=== PATIENT | female | born 1965 | race Caucasian/White ===

== ENCOUNTER → 2018-12-23 | Outpatient (CLI) | payer BC ==
--- NOTE | 2018-12-23 12:27 | XR ---
EXAMINATION TYPE: XR knee complete RT DATE OF EXAM: 12/23/2018 CLINICAL HISTORY: Right knee pain with no known injury TECHNIQUE: Three views of the right knee are obtained. COMPARISON: None. FINDINGS: There is no acute fracture/dislocation evident in right knee. There is medial compartment joint space narrowing and tibial plateau sclerosis with small tricompartmental osteophytes. Fabella i s also incidentally seen. Sclerotic lesion of the medial femoral condyle may relate to a bone island. No sizable suprapatellar joint effusion. The overlying soft tissue appears unremarkable. IMPRESSION: No acute fracture or dislocation in right knee. Tricompartmental arthropathy is mild to m oderate most pronounced in the medial compartment. Nonspecific sclerotic focus of the medial femoral condyle may relate to bone island.
== END | disposition home or self-care (01) ==
LOC: RADXRMAIN 11:42
PROVIDERS: ATTEND Family Medicine
DX: M17.11 Unilateral primary osteoarthritis, right knee (principal); R00.2 Palpitations; M25.562 Pain in left knee; R93.7 Abnormal findings on diagnostic imaging of other parts of musculoskeletal system

== ENCOUNTER → 2020-12-09 | Outpatient (CLI) | payer BC ==
--- NOTE | 2020-12-09 13:05 | US ---
EXAMINATION TYPE: US abdomen complete DATE OF EXAM: 12/09/2020 COMPARISON: NONE CLINICAL HISTORY: R94.5 ABN LIVER FUNCTIONS. Abnormal LFTs, pt states no known liver issues EXAM MEASUREMENTS: Liver Length: 16.9 cm Gallbladder Wall: 0.2 cm CBD: 0.4 cm Spleen: 10.3 cm Right Kidney: 11.6 x 4.3 x 5.2 cm Left Kidney: 12.0 x 5.5 x 5.4 cm Pancreas: Tail of the pancreas obscured by overlying bowel gas Liver: Mild diffuse fatty infiltration of liver with probable focal focal areas of fatty sparing at t he yeni hepatis and gallbladder fossa. Gallbladder: wnl Evidence for sonographic Carrasquillo's sign: No CBD: wnl Spleen: wnl Right Kidney: wnl, lower pole not well visualized due to overlying bowel gas. Left Kidney: wnl Upper IVC: wnl Abd Aorta: wnl No hydronephrosis or shadowing renal calculi. IMPRESSION: 1. The tail of the pancreas is obscured by overlying bowel gas. 2. Mild diffuse fatty infiltration of the liver with probable focal areas of fatty sparing at the por ta hepatis and gallbladder fossa. A CT abdomen using liver protocol may be helpful for further evalua tion.
== END | disposition home or self-care (01) ==
LOC: RADUSWWP 07:29
PROVIDERS: ATTEND Family Medicine
DX: K76.0 Fatty (change of) liver, not elsewhere classified (principal)
CPT/HCPCS: 76700

== ENCOUNTER → 2022-11-29 | Outpatient (CLI) | payer BC ==
--- NOTE | 2022-11-29 14:18 | MR ---
EXAMINATION TYPE: MR knee LT wo con DATE OF EXAM: 11/29/2022 COMPARISON: Outside right knee x-ray November 20, 2022 HISTORY: Lt knee pain, swells and locks TECHNIQUE: Multiplanar, multisequence images of the knee is performed without IV contrast. FINDINGS: MEDIAL MENISCUS: Truncated appearance posterior horn with abnormal signal consistent with full thickn ess tearing. LATERAL MENISCUS: Discoid meniscus is present. No abnormal signal to suggest tear CRUCIATE LIGAMENTS: The posterior cruciate ligament is intact and unremarkable. Some increased signal and fanning of fibers in the anterior cruciate ligament COLLATERAL LIGAMENTS: The medial collateral ligament and lateral collateral ligament complex are inta ct and unremarkable. EXTENSOR MECHANISM: Visualized quadriceps and patellar tendons are intact. EFFUSION: Moderate-size suprapatellar joint effusion. POPLITEAL CYST: No popliteal/barroso cyst. TRICOMPARTMENT SPACES: Moderate tricompartment joint space loss and spurring. CARTILAGE: Cartilaginous loss medial tibiofemoral compartment. BONE MARROW SIGNAL: No focal abnormal marrow signal is appreciated. OTHER: No additional significant abnormality is appreciated. IMPRESSION: 1. Full-thickness tear posterior horn of medial meniscus. 2. Moderate tricompartment degenerative changes as detailed above. 3. Moderate-sized suprapatellar joint effusion. 4. 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 No full thickness tear.
== END | disposition home or self-care (01) ==
LOC: RADMRIMAIN 13:04
PROVIDERS: ATTEND Orthopaedic Surgery
DX: S83.242A Other tear of medial meniscus, current injury, left knee, initial encounter (principal); M17.12 Unilateral primary osteoarthritis, left knee; M25.462 Effusion, left knee; X58.XXXA Exposure to other specified factors, initial encounter

== ENCOUNTER → 2023-01-03 | Outpatient (CLI) | payer BC ==
[2023-01-03 21:39] LABS: Basophils # (A) 0.03 X 10*3/uL (0.00-0.10); Basophils % (A) 0.5 %; Eosinophils # (A) 0.07 X 10*3/uL (0.04-0.35); Eosinophils % (A) 1.3 %; HCT 40.6 % (37.2-46.3); HGB 13.7 d/dL (12.0-15.0); Lymphocytes # (A) 1.36 X 10*3/uL (0.90-5.00); Lymphocytes % (A) 24.8 %; MCH 30.2 pg (27.0-32.0); MCHC 33.7 d/dL (32.0-37.0); MCV 89.4 FL (80.0-97.0); Mean Platelet Volume 11.6 FL (9.5-12.2); Monocytes # (A) 0.34 X 10*3/uL (0.20-1.00); Monocytes % (A) 6.2 %; NRBC Per 100 WBC 0 X 10*3/uL (0.00-0.01); Neutrophils # (A) 3.67 X 10*3/uL (1.80-7.70); Neutrophils % (A) 66.8 %; Platelet Count 271 X 10*3/uL (140-440); RBC 4.54 X 10*6/uL (4.10-5.20); RDW 12.5 % (11.5-14.5); WBC 5.49 X 10*3/uL (4.50-10.00)
== END | disposition home or self-care (01) ==
LOC: LABWHC1 15:02
PROVIDERS: ATTEND Orthopaedic Surgery
DX: Z01.818 Encounter for other preprocedural examination (principal); M23.92 Unspecified internal derangement of left knee; R94.31 Abnormal electrocardiogram [ECG] [EKG]
CPT/HCPCS: 85025; 93005

== ENCOUNTER 2023-01-17 11:36 | Day surgery (SDC) | payer BC ==
[2023-01-15 08:46] VITALS: BMI 31.8
--- NOTE | 2023-01-16 13:56 | HP ---
HISTORY AND PHYSICAL DATE OF SCHEDULED SURGERY: 01/17/2023. HISTORY OF PRESENT ILLNESS: Deisy Galvan is a 57-year-old patient seen with progressive left knee pain. We discussed options for treatment. She elected to proceed with left knee arthroscopy. Consent was obtained. PAST MEDICAL HISTORY: Hypothyroidism. PAST SURGICAL HISTORY: Noncontributory. DAILY MEDICATIONS: 1. Levothyroxine. 2. Motrin. ALLERGIES: None. SOCIAL HISTORY: She denies tobacco use. PHYSICAL EVALUATION OF LEFT KNEE: Range of motion is -3/4 to 115 degrees. Tenderness along the medial and lateral joint line. Positive medial Jose Alberto's. Positive lateral Jose Alberto's. Ligaments stable. Hip rotation without pain. Distal neurovascular exam intact. RADIOGRAPHS: Right knee radiographs revealed moderate medial compartment osteoarthritis. Mild patellofemoral compartment osteoarthritis. MRI left knee revealed medial meniscal tear and effusion. IMPRESSION: Internal derangement of left knee with medial meniscal tear. PLAN: Left knee arthroscopy with partial medial meniscectomy and debridement. MMODL / IJN: [id number] /
[~2023-01-17 11:36] MED LIST: DEXAMETHASONE SOD PHOSPHATE 4 MG/ML 1 ML VIAL IV ONE; LIDOCAINE 1% (10MG/ML) FOR IV START INTRADERMA PRN; MIDAZOLAM 2 MG/2 ML VIAL IV PRN; ONDANSETRON 4 MG/2 ML VIAL IVP ONE
[2023-01-17] MEDS: LACTATED RINGERS 1,000 ML IV SCH ×2 (11:56→12:15)
[2023-01-17] MEDS ORDERED: BUPIVACAINE (PF) 0.25% 30 ML VIAL SQ ONE ×2 (13:30→14:18)
[2023-01-17] MEDS ORDERED: fentaNYL (PF) 50 MCG/ML 2 ML AMP ONE (13:40)
[2023-01-17] MEDS ORDERED: LIDOCAINE 2% INJ 20 MG/ML (2 ML VIAL) ONE (13:40)
[2023-01-17] MEDS ORDERED: PROPOFOL 10 MG/ML 20 ML VIAL IV ONE (13:40)
[2023-01-17] MEDS ORDERED: MIDAZOLAM 2 MG/2 ML VIAL ONE (13:40)
[2023-01-17 14:35] VITALS: TEMP 96.8
[2023-01-17] MEDS: HYDROmorphone 0.5 MG/0.5 ML SYRINGE IVP PRN ×2 (14:36→14:56)
--- NOTE | 2023-01-17 14:36 | P.OP ---
Date of Procedure: 01/17/23 Preoperative Diagnosis: Internal derangement right knee Postoperative Diagnosis: 1. Tear medial lateral meniscus right knee 2. Grade 4 chondromalacia medial femoral condyle right knee 3. Grade 4 chondromalacia femoral sulcus right knee 4. Reactive synovitis medial, lateral and suprapatellar compartments right knee 5. Grade 2/3 chondromalacia lateral femoral condyle right knee 6. Grade 4 chondromalacia medial tibial plateau right knee Procedure(s) Performed: 1. Arthroscopic partial medial and lateral meniscectomy right knee 2. Arthroscopic microfracture medial femoral condyle right knee 3. Arthroscopic microfracture femoral sulcus right knee 4. Arthroscopic partial synovectomy medial, lateral and suprapatellar compartments right knee 5. Arthroscopic chondroplasty medial femoral condyle right knee 6. Arthroscopic chondroplasty lateral femoral condyle right knee Anesthesia: KITTY, local Surgeon: Hemanth Rodriguez Estimated Blood Loss (ml): 7 Pathology: none sent Condition: stable Disposition: PACU Indications for Procedure: 57-year-old patient seen with progressive right knee pain. After having treatment options discussed, she elected to proceed with arthroscopy. Operative Findings: See description of procedure Description of Procedure: Patient was taken to the operative suite. Patient underwent a general anesthetic by the department of anesthesia. Patient was given preoperative antibiotics. The right lower extremity was placed in a well-padded arthroscopic leg muñoz. The right leg was prepped and draped in the normal sterile orthopedic fashion. A lateral parapatellar and suprapatellar incision was made. Trochars were inserted. Arthroscopy was initiated. Suprapatellar pouch revealed diffuse thick reactive synovitis. The patellofemoral joint appeared articulate congruently. There as grade 2 chondral malacia patella and grade 3/4 chondral moist changes of the femoral sulcus to include an area of exposed bone. The scope was guided into the medial gutter. No loose bodies or plica were identified. The scope was then guided into the medial compartment. A medial parapatellar incision was made. Trocar inserted followed by probe. There was a complex tear involving the midbody and posterior horn medial meniscus. There were grade 3/4, changes of the femoral condyle and 3/4, changes of the tibial plateau. There was thick reactive some-itis anteriorly. I performed a partial medial meniscectomy getting down to stable meniscal tissue. I performed a chondroplasty of the medial femoral condyle getting down to stable osteochondral tissue. I performed a partial synovectomy decompressing reactive synovitis. I noted areas exposed bone involving the medial femoral condyle as well as a exposed bone along the medial tibial plateau area. I introduced a microfracture awl performed a microfracture to medial femoral condyle area of exposed bone penetrating the bone with resultant bleeding at the microfracture site. The residual meniscus was probed and was found to be stable. The residual osteochondral surface appeared stable. There was good decompression of the synovitis. Scope and probe were then guided into the intercondylar notch. Cruciates were identified, probed and found to be stable. The scope and probe were then guided into lateral compartment.. There were some radial tears along the mid body and posterior horn lateral meniscus. There was an area of grade 2/3 chondromalacia lateral femoral condyle with some osteochondral flap tears. There was thick reactive some-itis anteriorly. I performed a partial lateral meniscectomy getting down to stable meniscal tissue. I performed a chondroplasty lateral femoral condyle getting down to stable osteochondral tissue. I performed a partial synovectomy decompressing the reactive synovitis. The residual meniscus was stable. The residual osteochondral surface was stable. There was good decompression of the synovitis. The scope was in guided back into the suprapatellar compartment. I introduced a motorized shaver into the suprapatellar compartment. I performed a partial synovectomy decompressing the reactive synovitis. I now introduced a microfracture awl and performed a microfracture to the area of exposed bone femoral sulcus penetrating the bone with resultant bleeding at the microfracture site. The residual osteochondral surface was probed and was found to be stable. There was good decompression of the synovitis. I took one more look around the entire knee, no residual debris. Instruments were now removed from the joint. The joint was infiltrated with .25% Marcaine. The portal sites were proximal nylon suture. Sterile dressings were applied. The patient was placed into a BAILEE hose. No tourniquet was utilized. The patient was awakened, transferred to a bed and taken to recovery stable satisfactory condition.
[2023-01-17 14:53] VITALS: RESP 16
[2023-01-17 15:24] VITALS: PULSE 83
[2023-01-17 15:50] VITALS: BP 159/87
== END 2023-01-17 16:01 | disposition home or self-care (01) ==
LOC: OR 11:36
PROVIDERS: ATTEND Orthopaedic Surgery
DX: S83.231A Complex tear of medial meniscus, current injury, right knee, initial encounter (principal); S83.281A Other tear of lateral meniscus, current injury, right knee, initial encounter; M94.261 Chondromalacia, right knee; M65.861 Other synovitis and tenosynovitis, right lower leg; M17.11 Unilateral primary osteoarthritis, right knee; M25.461 Effusion, right knee; E03.9 Hypothyroidism, unspecified; Z79.890 Hormone replacement therapy; Z79.1 Long term (current) use of non-steroidal anti-inflammatories (NSAID)
CPT/HCPCS: 29879; 29880; J2250; J1100; J0690; J2405; J3010; J2704; J1170; J2001

== ENCOUNTER → 2023-10-10 | Outpatient (CLI) | payer BC ==
[2023-10-11 02:44] LABS: BUN/Creat Ratio 26.38 Ratio (12.00-20.00); Blood Urea Nitrogen 21.1 mg/dL (9.0-27.0); Calcium 9.3 mg/dL (8.7-10.3); Carbon Dioxide 26.6 mmol/L (21.6-31.8); Chloride 105 mmol/L (96-109); Glucose 113 mg/dL (70-110); Potassium 4.4 mmol/L (3.5-5.5); Sodium 143 mmol/L (135-145)
[2023-10-11 03:01] LABS: Basophils # (A) 0.05 X 10*3/uL (0.00-0.10); Basophils % (A) 0.9 %; Eosinophils # (A) 0.07 X 10*3/uL (0.04-0.35); Eosinophils % (A) 1.3 %; HCT 41.3 % (37.2-46.3); Lymphocytes # (A) 1.41 X 10*3/uL (0.90-5.00); Lymphocytes % (A) 26.3 %; MCH 29.3 pg (27.0-32.0); MCHC 31.5 g/dL (32.0-37.0); Mean Platelet Volume 11.6 FL (9.5-12.2); Monocytes # (A) 0.31 X 10*3/uL (0.20-1.00); Monocytes % (A) 5.8 %; NRBC Per 100 WBC 0 X 10*3/uL (0.00-0.01); Neutrophils # (A) 3.52 X 10*3/uL (1.80-7.70); Neutrophils % (A) 65.5 %; Platelet Count 267 X 10*3/uL (140-440); RBC 4.44 X 10*6/uL (4.10-5.20); RDW 13.5 % (11.5-14.5); WBC 5.37 X 10*3/uL (4.50-10.00)
[2023-10-11 03:32] LABS: INR 0.95 sec (0.93-1.11); Prothrombin Time 10.3 sec (9.9-11.9)
== END | disposition home or self-care (01) ==
LOC: LABPAT 11:59
PROVIDERS: ATTEND Orthopaedic Surgery
DX: Z01.812 Encounter for preprocedural laboratory examination (principal); M17.11 Unilateral primary osteoarthritis, right knee; Z22.322 Carrier or suspected carrier of Methicillin resistant Staphylococcus aureus
CPT/HCPCS: 80048; 85025; 85610; 87070; 93005

== ENCOUNTER 2023-10-21 08:05 | Day surgery (SDC) | payer BC ==
[2023-10-14 11:34] VITALS: BMI 33.5
--- NOTE | 2023-10-20 13:33 | HP ---
HISTORY AND PHYSICAL DATE OF SURGERY: 10/21/2023. HISTORY OF PRESENT ILLNESS: Deisy Galvan is a 58-year-old patient, who was seen with symptomatic right knee osteoarthritis. We discussed the options regarding treatment. She elected to proceed with right total knee arthroplasty. Consents obtained. PAST MEDICAL HISTORY: Hypothyroidism. PAST SURGICAL HISTORY: Noncontributory. DAILY MEDICATIONS: 1. Levothyroxine. 2. Motrin. ALLERGIES: None. SOCIAL HISTORY: She denies tobacco use. PHYSICAL EVALUATION OF THE RIGHT KNEE: Her range of motion is negative 2 to 120 degrees. Mild effusion. Tenderness along the medial joint line. Crepitance along the medial patellofemoral compartments with range of motion. Pain with patellofemoral compression. Ligaments are stable. Hip rotation without pain. Distal neurovascular exam is intact. IMAGING STUDIES: Right knee radiographs revealed severe osteoarthritic changes. IMPRESSION: 1. Right knee osteoarthritis. 2. Hypothyroidism. PLAN: Right total knee arthroplasty. MMODL / IJN: [id number] /
[~2023-10-21 08:05] MED LIST changes: -DEXAMETHASONE SOD PHOSPHATE 4 MG/ML 1 ML VIAL IV ONE; +HYDROmorphone 0.5 MG/0.5 ML SYRINGE IVP PRN; -MIDAZOLAM 2 MG/2 ML VIAL IV PRN; -ONDANSETRON 4 MG/2 ML VIAL IVP ONE; +TRANEXAMIC 1,000 MG/100ML-NACL 1,000 MG in SALINE 1 100ML.BAG IVPB PRN
[2023-10-21] MEDS: LACTATED RINGERS 1,000 ML IV SCH ×2 (08:36→13:41)
[2023-10-21] MEDS: ONDANSETRON 4 MG/2 ML VIAL IVP ONE (08:41)
[2023-10-21] MEDS: DEXAMETHASONE SOD PHOSPHATE 4 MG/ML 1 ML VIAL IVP ONE (08:41)
[2023-10-21] MEDS: MELOXICAM 7.5 MG TAB PO PRN (08:45)
[2023-10-21] MEDS: ACETAMINOPHEN TAB 500 MG TAB PO PRN (08:45)
[2023-10-21] MEDS: MIDAZOLAM 2 MG/2 ML VIAL IVP ONE (09:02)
[2023-10-21] MEDS ORDERED: TRANEXAMIC 1,000 MG/100ML-NACL PREMIX BAG ONE (09:52)
[2023-10-21] MEDS ORDERED: ROPIVACAINE 5 MG/ML 30 ML VIAL ONE (09:52)
[2023-10-21] MEDS ORDERED: MIDAZOLAM 2 MG/2 ML VIAL ONE (09:52)
[2023-10-21] MEDS ORDERED: PROPOFOL 10 MG/ML 20 ML VIAL IV ONE (09:52)
[2023-10-21] MEDS ORDERED: fentaNYL (PF) 50 MCG/ML 2 ML AMP ONE (09:52)
[2023-10-21] MEDS ORDERED: DEXAMETHASONE SOD PHOSPHATE 4 MG/ML 1 ML VIAL ONE (09:52)
[2023-10-21] MEDS: TRANEXAMIC 1,000 MG/100ML-NACL 1,000 MG in SALINE 1 100ML.BAG IVPB PRN (09:56)
[2023-10-21] MEDS: ceFAZolin 1,000 MG in SODIUM CHLORIDE 0.9% 1,000 ML IRRIGATION ONE (10:22)
[2023-10-21] MEDS: LACTATED RINGERS 1,000 ML IV ONE (11:24)
[2023-10-21] MEDS ORDERED: ONDANSETRON 4 MG/2 ML VIAL IVP PRN (11:39)
[2023-10-21] MEDS ORDERED: NALOXONE 0.4 MG/ML 1 ML VIAL IV PRN (11:39)
[2023-10-21] MEDS ORDERED: HYDROmorphone 0.5 MG/0.5 ML SYRINGE IVP PRN (11:39)
[2023-10-21] MEDS ORDERED: HYDROcodone/APAP 5-325MG 1 EACH TAB PO PRN (11:39)
--- NOTE | 2023-10-21 11:39 | P.OP ---
Date of Procedure: 10/21/23 Preoperative Diagnosis: Right knee osteoarthritis Postoperative Diagnosis: Right knee osteoarthritis Procedure(s) Performed: Right total knee arthroplasty Implants: 1. DePuy attune size 6 narrow right cruciate retaining cemented femur 2. DePuy attune size 6 fixed-bearing cemented tibial baseplate 3. DePuy attune size 6 fixed-bearing cruciate retaining 12 mm polyethylene tibial insert 4. DePuy attune 38 mm all polyethylene cemented patella Anesthesia: regional (Adductor canal catheter), spinal Surgeon: Hemanht Rodriguez Reports Developer #1: Lalo Trejo Estimated Blood Loss (ml): 40 Pathology: none sent Condition: stable Disposition: PACU Indications for Procedure: 58-year-old patient seen with symptomatic right knee osteoarthritis. After having treatment options discussed, she elected to proceed with total knee art hroplasty. Operative Findings: See description of procedure Description of Procedure: Patient was taken to the operative suite after having an adductor canal catheter placed by the department of anesthesia. Patient underwent a spinal anesthetic by the department of anesthesia. Patient was given preoperative IV intake antibiotics and TXA. A well-padded tourniquet was placed about the right lower extremity. The lower extremity was then prepped and draped in the normal sterile orthopedic fashion. The extremity was elevated, a tourniquet was insufflated to 300. A standard anterior incision was made sharply through skin. Dissection was taken down through the subcutaneous soft tissues down to the extensor mechanism. A medial arthrotomy was performed, patella was everted and knee was flexed. There was advanced osteoarthritis noted. I introduced my distal intramedullary femoral drill. I then introduced the distal femoral cutting jig. Osmin MONSIVAIS secured the cutting jig with 2 pins. I held retractors in position while Osmin MONSIVAIS performed the distal femoral resection through the guide area we now removed her distal femoral cutting guide. We now placed our 4-in-1 femoral cutting block and positioned and it was secured with 2 pins by Osmin MONSIVAIS while I held the block in position. The distal femoral finishing was now completed. A proximal tibial cutting guide was positioned. I held the guide in the appropriate position with both hands well Osmin MONSIVAIS inserted stabilizing pins into the guide. Proximal tibial cut was made. We now placed a trial femoral component into position, along with an appropriate size tibial tray and insert. We now took the knee through range of motion and had full extension good flexion and good overall soft tissue balance noted. The patella was everted and stabilized with 2 towel clips held by Osmin MONSIVAIS while I performed a flush with patellar quad tendon utilizing a fresh sawblade. We templated the patella, appropriate drill holes were made. An appropriate trial patella was positioned, knee was taken through full range of motion with the patella tracking very nicely. The trial patella was removed. Drill holes were made through the femoral component. All trial components were removed after marking off the appropriate rotation of the tibia. Retractors w ere now positioned along the proximal tibia. An appropriate keel punch was made with the appropriate size tibial guide by myself on Osmin MONSIVAIS assisted by holding retractors. At this point appropriate size implants were chosen and opened. The joint was irrigated copiously with pulse lavage mechanical irrigation. The wound was irrigated with pulse lavage mechanical irrigation. We mixed antibiotic methylmethacrylate. We placed the knee into flexion. We placed multiple retractors assisted by Osmin MONSIVAIS to expose the proximal tibia. Once the methyl methacrylate was ready, the tibial component was cemented into place removing any excess methylmethacrylate form by both myself and Osmin MONSIVAIS. The femoral component was cemented into place removing the removing any excess methylmethacrylate performed by both myself and Osmin MONSIVAIS. We then inserted the appropriate size polyethylene tibial insert. We made sure that it was locked into position. We took the knee into full extension, and then back in a flexion making sure we had removed any excess methylmethacrylate. The patellar component was then cemented down and secured with clamp. Excess methylmethacrylate removed. We kept the knee in full extension, patellar clamp in position until methylmethacrylate had hardened. Once it had hardened the patellar clamp was removed. The knee was taken through full range of motion. The patella tracked nicely. There was good soft tissue balancing. The tourniquet was now released. Additional hemostasis was achieved via electrocautery. A second gram of TXA was given. The wound again was irrigated with pulse lavage mechanical irrigation. The extensor mechanism was repaired with Ethibond suture. We checked the repair with range of motion and it was stable. The subcutaneous soft tissues were repaired with Vicryl in layers. The skin was approximated with pernio/Dermabond. Sterile dressings were applied followed by loose web roll and Dustin bandage. The patient was transferred to a bed, and taken to recovery in stable and satisfactory condition. Osmin MONSIVAIS assisted with this complex procedure.
[2023-10-21] MEDS: ROPIVACAINE 1,100 MG, SODIUM CHLORIDE 0.9% 500 ML 330 ML, EMPTY PAIN BALL 1 EACH MISCELLANE PRN (12:46)
--- NOTE | 2023-10-21 13:05 | XR ---
EXAMINATION TYPE: XR knee limited RT DATE OF EXAM: 10/21/2023 CLINICAL HISTORY: Postoperative evaluation Two views of the right knee are submitted. Identified are changes of total knee arthroplasty with femoral and tibial components appearing well seated. Postsurgical soft tissue changes are noted. Alignment is anatomic.
[2023-10-21] MEDS: HYDROmorphone 0.5 MG/0.5 ML SYRINGE IVP PRN (13:42)
[2023-10-21] MEDS: HYDROmorphone 1 MG/ML 1 ML SYRINGE IVP PRN (18:37)
[2023-10-21] MEDS: ENOXAPARIN 30 MG/0.3 ML SYRINGE SQ SCH (19:40)
[2023-10-21] MEDS: SENNOSIDES-DOCUSATE SODIUM 1 EACH TAB PO SCH (19:40)
--- NOTE | 2023-10-21 20:27 | P.ANPRN ---
Procedure Note - Anesthesia - Nerve Block Performed Right Adductor Canal Infusion Time Out Performed: Yes Date of Procedure: 10/21/23 Procedure Start Time: : Procedure Stop Time: :12 Location of Patient: PreOp Indication: Acute Post-Operative Pain, Requested by Surgeon Sedation Type: Sedate with meaningful contact maintained Preparation: Sterile Prep, Sterile Dressing Position: Supine Catheter: Indwelling Needle Types: Pajunk Needle Gauge: 21 Ultrasound used to visualize needle placement: Yes Ultrasound used to observe medication spread: Yes Blood Aspirated: No Pain Paresthesia on Injection Noted: No Resistance on Injection: Normal Image Stored and Saved: Yes Events: Uneventful and Well Tolerated (Ropivacaine 0.5% the cc plus dexamethasone 4 mg)
--- NOTE | 2023-10-21 20:28 | P.ANPRN ---
Procedure Note - Anesthesia - Nerve Block Performed Right Sivack Single Time Out Performed: Yes Date of Procedure: 10/21/23 Procedure Start Time: 09:13 Procedure Stop Time: 09:15 Location of Patient: PreOp Indication: Acute Post-Operative Pain, Requested by Surgeon Sedation Type: Sedate with meaningful contact maintained Preparation: Sterile Prep Position: Supine Needle Types: Pajunk Needle Gauge: 21 Ultrasound used to visualize needle placement: Yes Ultrasound used to observe medication spread: Yes Blood Aspirated: No Pain Paresthesia on Injection Noted: No Resistance on Injection: Normal Image Stored and Saved: Yes Events: Uneventful and Well Tolerated (Ropivacaine 1% 25 cc plus dexamethasone 4 mg)
[2023-10-22] MEDS: HYDROcodone/APAP 7.5-325MG 1 EACH TAB PO PRN (00:42)
--- NOTE | 2023-10-22 02:12 | CONS ---
CONSULTATION REASON FOR CONSULTATION: Advice regarding hypothyroidism, other medical issues requested by Ortho. HISTORY OF PRESENT ILLNESS: This is a 58-year-old woman with past medical history of hypothyroidism, underwent right total knee arthroplasty by Dr. Rodriguez. There is no history of any fever or rigors. No headache, loss of consciousness at this time. PAST MEDICAL HISTORY: Reviewed, include DJD, hypothyroidism, section, left knee surgery, occasional alcohol intake. Rest of history is noted. HOME MEDICATIONS: Synthroid 112 mcg. Dose and rest of medications noted. ALLERGIES: None. FAMILY HISTORY: No history of heart disease or strokes in the family. SOCIAL HISTORY: Occasional alcohol. REVIEW OF SYSTEMS: Fourteen-point review of systems negative as mentioned. PHYSICAL EXAMINATION: VITAL SIGNS: Pulse 70, blood pressure 140/80, respirations 16. HEENT: Conjunctivae normal. CARDIOVASCULAR: S1, S2. ABDOMEN: Soft. LEGS: Status post right knee arthroplasty. NERVOUS SYSTEM: Nonfocal. SKIN: No ulcer, rash, bleeding. JOINTS: No active deforming arthropathy. LABORATORY DATA: Not available. The preop labs are acceptable. ASSESSMENT: 1. Status post right total knee arthroplasty. 2. Degenerative joint disease. 3. Hypothyroidism. 4. History of left knee surgery. RECOMMENDATIONS AND DISCUSSION: This is a 58-year-old woman, who presented after surgery. At this time, I recommend to continue the current medications. Continue symptomatic treatment, DVT prophylaxis. The patient is on Lovenox 30 subcu b.i.d. Incentive spirometry. We will follow the patient closely. The patient may be asked to follow up with Dr. More Salvador closely after discharge. MMODL / IJN: [id number] /
[2023-10-22] MEDS: LEVOTHYROXINE 112 MCG TAB PO SCH (06:07)
[2023-10-22 08:03] VITALS: BP 180/96; PULSE 79; RESP 19; TEMP 98.1
--- NOTE | 2023-10-22 09:54 | P.DS ---
Providers Date of admission: 10/21/2023 Expected date of discharge: 10/22/23 Attending physician: Hemanth Rodriguez Consults: 10/21/23 11:39 Consult Physician Routine Consulting Provider: Rajesh Rothman Consult Reason/Comments: Medical management Do you want consulting provider notified?: Yes Primary care physician: More Salvador Hospital Course: Date of admission: 10/21/2023 Date of discharge: 10/22/2023 Admission diagnosis: right knee osteoarthritis Discharge diagnosis:same Attending physician: Dr. Rodriguez Surgical procedures: right total knee arthroplasty Brief history: Patient is a 58-year-old female with a history of progressive primary right knee osteoarthritis. At this point patient has failed conservative treatment measures and has opted to proceed with a elective right total knee arthroplasty. Hospital course: Details of patient's surgery can be found in operative report. Patient tolerated the procedure well and was subsequently transported to orthopedic floor. Patient's orthopeidc and medical care was provided daily. Patient had daily laboratory tests performed for evaluation of overall blood counts. Patient had daily physical therapy to include strengthening range of motion as well as education with walker ambulation. Patient was treated with Lovenox for their postoperative DVT prophylaxis during their inpatient stay. Patient was noted to have a relatively uneventful postoperative course. Patient reported satisfactory pain control with oral pain medications by postoperative day 1. Patient showed satisfactory progress with physical therapy. Patient moved steadily through the program and had no difficulty meeting the goals by postoperative day 1. Given patient's otherwise satisfactory course and having met physical therapy goals, plan is to discharge patient home with health services on postoperative day 1. Discharge condition/disposition: Patient will be discharged home with health ervic in stable condition. Discharge medications: Instructions are given on resumption of patient's normal daily medications per primary care recommendation, in addition patient will be prescribed Grahn; senna; aspirin 81 mg twice a day 30 days Discharge instructions: 1. Wound care and infection precautions, keep incision dry and covered while showering, no lotions, creams, moisturizers. No soaking, tubs, pools, hottubs. Do not scrub over the incision. 2. Weight-bear [as tolerated] with walker / cane until follow-up. 3. Ice and elevate when necessary. Do not exceed 20 minutes per hour with ice pack. 4. Utilize compression sleeve until seen at first follow up appointment. 5. Visiting nursing care. 6. Home physical therapy including home CPM. 7. Pain meds and anticoagulants per prescription. 8. Pain medication has potential to cause constipation. Increase oral fluid and fiber intake. Contact primary care provider if you have not had a bowel movement within 48 hours after discharge 9. No anti-inflammatory medication until discussed at first post operative visit, this including Motrin, Aleve, Mobic, Diclofenac. 10. Follow up in office at 2 weeks postop with Osmin Trejo PA-C / Misael Moore PA-C 11. Follow up with your primary care doctor 7-10 days after discharge. 12. Contact [facility] with any questions, . keep incision clean, dry, intact. While showering, cover silver foam dressing with saran wrap. Keep silver foam dressing on until 10/28/2023. Dressing may be removed on 10/28/2023. Once dressing is removed it is okay shower directly over incision once dressing is removed. Assessment: right knee osteoarthritis Procedures: right total knee arthroplasty Patient Condition at Discharge: Good Plan - Discharge Summary Discharge Rx Participant: Yes New Discharge Prescriptions: New Aspirin [Adult Low Dose Aspirin EC] 81 mg PO BID #60 tab HYDROcodone/APAP 7.5-325MG [Grahn 7.5-325] 1 - 2 tab PO Q6HR PRN #36 tab PRN Reason: Pain Sennosides/Docusate Sodium [Senna Plus 8.6-50 mg Softgel] 1 each PO DAILY #20 cap No Action Levothyroxine Sodium [Synthroid] 112 mcg PO DAILY Ibuprofen [Motrin] 800 mg PO Q8H PRN PRN Reason: Pain Discharge Medication List Ibuprofen [Motrin] 800 mg PO Q8H PRN 01/15/23 [History] Levothyroxine Sodium [Synthroid] 112 mcg PO DAILY 01/15/23 [History] Aspirin [Adult Low Dose Aspirin EC] 81 mg PO BID #60 tab 10/22/23 [Rx] HYDROcodone/APAP 7.5-325MG [Grahn 7.5-325] 1 - 2 tab PO Q6HR PRN #36 tab 10/22/23 [Rx] Sennosides/Docusate Sodium [Senna Plus 8.6-50 mg Softgel] 1 each PO DAILY #20 cap 10/22/23 [Rx] Follow up Appointment(s)/Referral(s): [facility],Equipment [NON-STAFF] - As Needed (Please call [facility] once home to arrange delivery of the Continuous Passive Motion (CPM) machine. ) Lalo Trejo, PAC [PHYSICIAN LEAN LEADER] - 2 Weeks Patient Instructions/Handouts: Knee Replacement (DC), Knee Replacement (GEN) Activity/Diet/Wound Care/Special Instructions: Discharge instructions: 1. Wound care and infection precautions, keep incision dry and covered while showering, no lotions, creams, moisturizers. No soaking, tubs, pools, hottubs. Do not scrub over the incision. 2. Weight-bear [as tolerated] with walker / cane until follow-up. 3. Ice and elevate when necessary. Do not exceed 20 minutes per hour with ice pack. 4. Utilize compression sleeve until seen at first follow up appointment. 5. Visiting nursing care. 6. Home physical therapy including home CPM. 7. Pain meds and anticoagulants per prescription. 8. Pain medication has potential to cause constipation. Increase oral fluid and fiber intake. Contact primary care provider if you have not had a bowel movement within 48 hours after discharge 9. No anti-inflammatory medication until discussed at first post operative visit, this including Motrin, Aleve, Mobic, Diclofenac. 10. Follow up in office at 2 weeks postop with Osmin Trejo PA-C / Misael Moore PA-C 11. Follow up with your primary care doctor 7-10 days after discharge. 12. Contact [facility] with any questions, . keep incision clean, dry, intact. While showering, cover silver foam dressing with saran wrap. Keep silver foam dressing on until 10/28/2023. Dressing may be removed on 10/28/2023. Once dressing is removed it is okay shower directly over incision once dressing is removed. Discharge Disposition: HOME WITH HOME HEALTH SERVICES
[2023-10-22 11:01] LABS: Basophils # (A) 0.02 X 10*3/uL (0.00-0.10); Basophils % (A) 0.2 %; Eosinophils # (A) 0 X 10*3/uL (0.04-0.35); Eosinophils % (A) 0 %; HCT 38.1 % (37.2-46.3); HGB 12.7 g/dL (12.0-15.0); Lymphocytes # (A) 1.64 X 10*3/uL (0.90-5.00); Lymphocytes % (A) 15.1 %; MCH 30.5 pg (27.0-32.0); MCHC 33.3 g/dL (32.0-37.0); MCV 91.6 FL (80.0-97.0); Mean Platelet Volume 12.1 FL (9.5-12.2); Monocytes # (A) 0.86 X 10*3/uL (0.20-1.00); Monocytes % (A) 7.9 %; NRBC Per 100 WBC 0 X 10*3/uL (0.00-0.01); Neutrophils # (A) 8.31 X 10*3/uL (1.80-7.70); Neutrophils % (A) 76.4 %; Platelet Count 259 X 10*3/uL (140-440); RBC 4.16 X 10*6/uL (4.10-5.20); RDW 13.3 % (11.5-14.5); WBC 10.87 X 10*3/uL (4.50-10.00)
--- NOTE | 2023-10-22 11:04 | P.PN ---
Progress Note - Text 10/22/23 636am 8-year-old female status post total knee replacement Dr. Rodriguez. Patient seen and evaluated for postop pain control she has an On-Q pump solution running at 8 cc an hour with a VAS of 5 pain is primarily located posteriorly. Dressing clean dry intact. Plan to continue On-Q pump infusion
[2023-10-22] MEDS: MULTIVITAMINS, THERA 1 EACH TAB PO SCH (11:53)
--- NOTE | 2023-10-22 12:24 | P.PN ---
Subjective Progress Note Date: 10/22/23 Principal diagnosis: right knee osteoarthritis patient was seen at bedside this morning lying semirecumbent position with legs elevated and dressing present over anterior right knee. Patient says she just finished working with physical therapy and is able to walk the price and up -and-down stairs. Patient says she is looking forward to going home later today. Patient says she does have a walker home. Patient says she has urinated since surgery without issue. Patient says she has not had a bowel movement yet, however, patient says she has been passing gas. Patient denies chest pain, fever, shortness of breath, nausea, vomiting, change in vision, loss of bowel/bladder control. Objective - Vital Signs Vital signs: Vital Signs Temp 98.1 F 10/22/23 07:25 Pulse 79 10/22/23 07:25 Resp 19 10/22/23 07:25 BP 180/96 10/22/23 07:25 Pulse Ox 100 10/22/23 07:25 FiO2 Intake & Output 10/21/23 10/22/23 10/22/23 18:59 06:59 18:59 Intake Total 1451 Output Total 40 Balance 1411 Weight 86.5 kg Intake: IV 1451 Output: Estimated Blood Loss 40 Other: Voiding Method Toilet # Voids 1 3 - Exam right knee: Incision is clean, dry, and intact. The silver foam dressing is in good cond ition. There is minimal soft tissue swelling and ecchymosis surrounding the medial and lateral aspects of the incision. Calf is soft, no tenderness with palpation. Plantar flexion, dorsiflexion, EHL, FHL are intact. Sensory exam to light touch throughout the extremity is intact, dorsal pedis pulses 2+. - Labs CBC & Chem 7: 10/22/23 06:29 Assessment and Plan Assessment: 1. right knee osteoarthritis - Postoperative day #1 status post right total knee arthroplasty Plan: 1. right knee osteoarthritis - right total knee arthroplasty performed yesterday, 10/21/2023. Patient stable at bedside this morning. Patient did do well with therapy this morning. Patient does have a walker for home. Discharge home today with health services. 2. Appreciate medical management 3. Pain management - norco 4. GI prophylaxis - senna 5. DVT prophylaxis - Lovenox in hospital. Going home with aspirin 81 mg twice a day 30 days 6. PT/OT - weightbearing as tolerated with walker as needed 7. Encourage incentive spirometer use 8. Discharge planning - home today with health services
== END 2023-10-22 12:45 | disposition home health service (06) ==
LOC: OR 08:05 → 4SSUR 12:49 → OR 10-22 12:45
PROVIDERS: ATTEND Orthopaedic Surgery
DX: M17.11 Unilateral primary osteoarthritis, right knee (principal); G89.18 Other acute postprocedural pain; E03.9 Hypothyroidism, unspecified; Z79.890 Hormone replacement therapy; Z79.1 Long term (current) use of non-steroidal anti-inflammatories (NSAID); Z79.82 Long term (current) use of aspirin
CPT/HCPCS: 97161; 64999; 64448; 85025; 73560; 27447; C1776; C1713 ×2; C1751; J2250; J1100; J0690 ×3; J2405; J1650 ×2; J1170 ×2; J2795

== ENCOUNTER → 2024-11-04 | Outpatient (CLI) | payer BC ==
--- NOTE | 2024-11-04 11:05 | MM ---
Reason for Exam: Screening (asymptomatic). Last mammogram was performed 2 year(s) and 5 month(s) ago. Patient History: Menarche at age 12. First Full-Term at age 43. Late child-bearing (after 30). Postmenopausal. 2005, US breast needle core RT on the Right side. Risk Values: Sarita 5 year model risk: 2.3%. NCI Lifetime model risk: 12.0%. Prior Study Comparison: 10/29/2012 Bilateral Screening Mammogram, [facility]. 05/03/2016 Bilateral Screening Mammogram, [facility]. 10/25/2020 Bilateral Screening Mammogram, [facility]. 06/12/2022 Bilateral Screening Mammogram, [facility]. Tissue Density: There are scattered areas of fibroglandular density. Findings: Analyzed By CAD. There is no suspicious group of microcalcifications or new suspicious mass in either breast. Overall Assessment: Negative, BI-RAD 1 Management: Screening Mammogram of both breasts in 1 year. . Patient should continue monthly self-breast exams. A clinical breast exam by your physician is recommended on an annual basis. This exam should not preclude additional follow-up of suspicious palpable abnormalities. Note on Sarita scores and lifetime risk: 1. A Sarita score greater than 3% is considered moderate risk. If this is the case, consider specialist referral to assess eligibility for a risk reducing agent. 2. If overall lifetime risk for the development of breast cancer is 20% or higher, the patient may qualify for future screening with alternating mammogram and breast MRI. [facility], , 11/04/2024 11:01 AM. Electronically signed and approved by: Bryan Hoang M.D. Radiologis
--- NOTE | 2024-11-04 12:11 | BD ---
EXAMINATION TYPE: Axial Bone Density DATE OF EXAM: 11/04/2024 CLINICAL HISTORY: 59 years old Female. ICD-10 CODE: Z78.0 ASYMPTOMATIC MENOPAUSAL STA , Additional History: Height: 5 ft 2 1/2 in Weight: 190 FRAX RISK QUESTIONS: Alcohol (3 or more units per day): no Family History (Parent hip fracture): no Glucocorticoids (More than 3mos): no (Ex: prednisone, prednisolone, methylprednisolone, dexamethasone, and hydrocortisone). History of Fracture in Adulthood: no Secondary Osteoporosis: 1. Type 1 Diabetes: no 2. Hyperthyroidism: no 3. Menopause before 45: no 4. Malnutrition: no 5. Chronic liver disease: no Rheumatoid Arthritis: no Current Tobacco Use: no RISK FACTORS HISTORY OF: Surgery to Spine/Hip(right/left)/Wrist (right/left): no MEDICATIONS: Thyroid Medications: yes Which medication: synthroid How Lon years Osteoporosis Medications: none EXAM MEASUREMENTS: Bone mineral densitometry was performed using the [employer] System. Bone mineral density as measured about the Lumbar spine is: ----- L1-L4(G/cm2): 1.203 T Score Values are as follows: ----- L1: -0.8 ----- L2: -0.7 ----- L3: 0.9 ----- L4: 0.8 ----- L1-L4: 0.2 Z Score Values are as follows: ----- L1: -0.4 ----- L2: -0.3 ----- L3: 1.4 ----- L4: 1.3 ----- L1-L4: 0.6 baseline Bone mineral density about the R hip (g/cm2): 0.828 Bone mineral density about the L hip (g/cm2): 0.823 T Score values are as follows: -----R Neck: -1.5 -----L Neck: -1.5 -----R Total: -1.6 -----L Total: -1.3 Z Score values are as follows: -----R Neck: -0.8 -----L Neck: -0.8 -----R Total: -1.2 -----L Total: -0.9 baseline FRAX%s: The graph provided illustrates a 7.6 % chance for a major osteoporotic fx and a 0.6 % chance for the hips probability for fx in 10 years time. IMPRESSION: Osteopenia (T Score between -2.5 and -1). There is slightly increased risk of fracture and the patient may be considered for treatment. Re-Screen 2-5 years. NOTE: T-SCORE=SD OF THE YOUNG ADULT MEAN. [facility], , 11/04/2024 12:09 PM
== END | disposition home or self-care (01) ==
LOC: RADMAMWWP 07:24
PROVIDERS: ATTEND Family Medicine
DX: Z12.31 Encounter for screening mammogram for malignant neoplasm of breast (principal); R92.323 Mammographic fibroglandular density, bilateral breasts; M85.89 Other specified disorders of bone density and structure, multiple sites; Z78.0 Asymptomatic menopausal state
CPT/HCPCS: 77063; 77067; 77080